=== PATIENT | female | born 1985 | race Caucasian/White ===

== ENCOUNTER 2017-01-19 02:07 | Emergency (ER) | payer OTHER ==
[~2017-01-19] VITALS: Ht 162.6 cm; Wt 59.1 kg
[~2017-01-19 02:07] MED LIST: CIPR-231 PO; CLIN-78 PO; FLUC150T48 PO; Ibuprofen PO; METR500T PO; NAPR500T5 PO; OXYC1TAB24 PO
[2017-01-19 02:15] VITALS: BP 105/68; PULSE 88; RESP 16; O2SAT 98
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
[2017-01-19] MEDS ORDERED: cefTRIAXone Inj 250 MG, Lidocaine PF 1% Inj 0.9 ML in Syringe 1 EACH IM ONE (03:00)
[2017-01-19 04:33] VITALS: BP 102/66; PULSE 64; RESP 18; O2SAT 100
[2017-01-19] MEDS ORDERED: _metroNIDAZOLE 500 mg Tablet PO SCH (08:30)
== END 2017-01-19 03:46 | disposition home or self-care (01) ==
LOC: SED 02:07
DX: T74.21XA Adult sexual abuse, confirmed, initial encounter (principal); Y04.8XXA Assault by other bodily force, initial encounter; Y07.50 Unspecified non-family member, perpetrator of maltreatment and neglect; Y92.9 Unspecified place or not applicable; Y93.89 Activity, other specified; Y99.8 Other external cause status; Z20.2 Contact with and (suspected) exposure to infections with a predominantly sexual mode of transmission; N89.8 Other specified noninflammatory disorders of vagina; R10.30 Lower abdominal pain, unspecified; M54.5 Low back pain; R30.0 Dysuria; J45.909 Unspecified asthma, uncomplicated; F11.20 Opioid dependence, uncomplicated; F17.200 Nicotine dependence, unspecified, uncomplicated; Z59.0 Homelessness; Z88.8 Allergy status to other drugs, medicaments and biological substances; Z88.0 Allergy status to penicillin; Z88.5 Allergy status to narcotic agent
CPT/HCPCS: 36415; 86592; 87491; 87591; 96372; 99284; G0433; G0472; J0696

== ENCOUNTER 2017-02-10 17:48 | Emergency (ER) | payer OTHER ==
[~2017-02-10] VITALS: Ht 162.6 cm; Wt 56.8 kg
[2017-02-10 18:44] VITALS: BP 102/66; PULSE 98; RESP 16; O2SAT 97
--- NOTE | 2017-02-10 19:07 | ED.REPORT ---
HPI-Rash / Abscess Date of Service Feb 10, 2017 ED Provider: Lucian Almanzar MD A 31 year old female with a history of IV heroin abuse and drug injection abscesses presents to the ED complaining of a multiple lesions to her face and extremities that first appeared a few months ago. She has several healing abscess wounds and reports discharge from some of the affected areas. Patient also reports subjective fever, bilateral eye discomfort and redness. She also claims that she has been experiencing worsening anxiety for the past week. Patient reports that she is preparing to go to treatment in two weeks and is seeking care for her abscesses. Patient is a frequent ED visitor. She denies chance of . Nursing Notes Stated Complaint: PINK EYE, SWOLLEN INFECTED ARMS AND LEGS Chief Complaint: Skin Rash/Abscess Nursing Notes Reviewed: Yes Allergies: Coded Allergies: methylphenidate HCl (Verified Allergy, Severe, TICKS, 01/19/17) amoxicillin (Verified Allergy, Unknown, 01/19/17) codeine (Verified Allergy, Unknown, 01/19/17) hydrocodone (Verified Allergy, Unknown, Nausea,Vomiting, 01/19/17) latex (Verified Allergy, Unknown, 01/19/17) potassium (Verified Allergy, Unknown, 01/19/17) Scheduled Cephalexin (Keflex) 500 Mg Capsule 500 MG PO QID Ciprofloxacin (Cipro) 500 Mg Tablet 500 MG PO BID Clindamycin (Clindamycin) 300 Mg Capsule 300 MG PO QID Clindamycin (Clindamycin) 300 Mg Capsule 300 MG PO QID Erythromycin Ophth Oint (Erythromycin Ophth Oint) 3.5 Gm Oint...g. 1 APPL OP QID Fluconazole (Diflucan) 150 Mg Tablet 150 MG PO ONCE Metronidazole (Flagyl) 500 Mg Tablet 500 MG PO BID Sulfamethoxazole/Trimeth 800-160 mg (Bactrim DS) 1 Each Tablet 1 TABLET PO BID Scheduled PRN ([Ibuprofen]) 200 MG TABLET 400 MG PO TIDWM PRN PRN For Pain Hydroxyzine Pamoate (Vistaril) 25 Mg Capsule 25 MG PO HS PRN PRN For Insomnia Naproxen (Naproxen) 500 Mg Tablet.dr 500 MG PO BID PRN PRN For Pain oxyCODONE-Acetaminophen 5-325 mg (oxyCODONE-Acetaminophen 5-325 mg) 1 Tab Tablet 1 TAB PO Q4H PRN PRN For Pain General Time Seen by MD: 19:02 Chief Complaint Rash Hx Obtained From: Patient Arrived By: Walk-in Onset Occurred: More than a week ago... Symptom Duration: Since onset Location: : Arm: Head/face: Lower extremity Quality: Painful Severity: Current: Mild Severity: Maximum: Mild Associated with: Reports Conjunctivitis, Reports Fever (Subjective ) Pertinent Negative: Pt denies other symptoms Recent Healthcare: No recent hospitalization, Recent doctor visit Past Medical History Past Medical History Back injury- injury of L4/L5 from work Kidney stones Hip dysplasia Pyelonephritis and frequent UTIs drug injection abscesses Reports: Asthma Past Surgical History T&A [place] teeth D&C Reports: Cholecystectomy Reports: Tubal ligation Family History non-contributory Smoking History Current Every Day Smoker Social History Alcohol Use: Denies alcohol use Drug Use: IV drugs Other Social History: Frequent ED visitor, , Homeless Occupation lives with and 3 kids Ambulatory Status Independent Review of Systems Constitutional: Reports: Fever (Subjective), Denies: Chills Eyes: Reports: Eye pain bilateral, Redness bilateral Respiratory: Denies: Shortness of breath GI: Denies: Nausea, Vomiting Skin: Reports Rash (Diffuse leisons to upper and lower extrmeities) Complete sys rev & neg: except as marked. Neurologic: Denies: Change LOC Psychiatric: Reports: Anxiety Physical Exam Initial Vital Signs Vital Signs (First) Date Time Temp Pulse Resp B/P Pulse Ox O2 Delivery O2 Flow Rate FiO2 02/10/17 18:44 36.2 98 16 102/66 97 Room Air Initial VS: Reviewed Neck: Supple, Non-tender, Full range of motion Extremities: Vascular intact, Neuro intact, No swelling, No tenderness Neurologic: Alert, Oriented, Nonfocal Psychiatric: Mood/affect normal, Behavior normal, Normal thought content General/Constitutional: Awake, Alert, Not toxic appearing GENERAL: Afebrile Skin: Atraumatic, Warm, Dry Rash / Lesion Notes: RASH/LESION: Crusty area of honey colored erythema Superficial ulcerations to bilateral upper and lower extremities Granulomatous base with purulent discharge (areas up to 2 cm) No fluctuant abscesses Rash / Lesion Location: Positive: Arm L, Arm R, Leg L, Leg R Head / Eyes: Atraumatic, Normocephalic, PERRL Conjunctiva / Sclera: Positive: Injected left, Injected right Eyelids: Negative: FB under lid L, FB under lid R Respiratory / Chest: Atraumatic, Breath sounds NL, Breath sounds = bilat, No respiratory distress Cardiovascular: Heart rate NL, Regular rhythm, Heart sounds NL, No gallop, No murmurs, No rubs, Cap refill not delayed, Pulses = bilaterally Re-Eval/Medical Decision Med Decision/Clinical Course Patient is a generally healthy 31-year-old female with a history of IV drug abuse who presents with diffuse erythematous nodules and shallow ulcerations about her bilateral upper and lower extremities which are chronic in nature. She also complains of 2 days of conjunctival injection and itchy eyes. Here in the emergency department she is afebrile, hemodynamically stable and nontoxic in appearance. There is no evidence of abscess amenable to incision and drainage. Her presentation is consistent with multiple regions of soft tissue injury and superficial ulceration likely multifactorial and related to superficial infection/cellulitis as well as toxin mediated tissue destruction due to skin popping heroin. Her conjunctival injection is consistent with conjunctivitis, there is no evidence of foreign body, corneal abrasion/ ulceration or foreign body. She does not wear contact lenses. She does not appear systemically L and she is afebrile. I prescribed a 10 day course of Bactrim and Keflex. She was quite anxious here in the emergency department and she was treated with 0.5 mg of oral Ativan. She is not driving home. I have prescribed a course of erythromycin ointment for her conjunctivitis. She plans to go to rehabilitation though is not quitting heroin at this time. She plans to check into rehabilitation next week. Follow-up and return precautions were reviewed in detail and the patient was discharged in stable condition. Her first dose of Bactrim/Keflex was administered in the emergency room. Re-Evaluation/Progress : Time of Eval: 20:13 Patient Status: Condition improved Re-Evaluation/Progress Note: Patient is rechecked. She is informed of her diagnosis. All of the patient's questions are addressed. She understands and agrees with the treatment plan. Counseled Regarding: Diagnosis, Need for follow-up, When/why to return to ED Discharge & Departure Impression: Primary Impression: Pustule Additional Impressions: IV drug abuse Conjunctivitis Conjunctivitis type: unspecified Laterality: bilateral Qualified Code: H10.9 - Unspecified conjunctivitis Cellulitis Site of cellulitis: unspecified site Qualified Code: L03.90 - Cellulitis, unspecified Skin breakdown Disposition: Home Discharge Condition All VS Reviewed: Yes Condition: Improved Patient Instructions: Conjunctivitis (ED) Additional Instructions: Thank you for seeking care at the emergency room. Our primary goal today in the ED was to evaluate you for any life-threatening conditions. Your evaluation was reassuring. Please abstain from heroin. You will be discharged with a prescription for Bactrim and Keflex. Please apply the ointment to both eyes. Please do not pick at the affected areas as it will help them heal better. You should follow-up with your primary doctor in the next week. You should return to the ED immediately if you develop fevers, chills, vomiting , worsening redness, warmth, swelling or any other concerning signs or symptoms. Thank you for letting us partake in your care today and good luck with your treatment! Referrals: [facility] (PCP) [facility] Res[facility] Scribe Attestation Portions of this note were transcribed by Tiffany Washington. I, Dr. Almanzar personally performed the history, physical exam and medical decision-making; I reviewed and confirmed the accuracy of the information in the transcribed note. Signed by: Vishal Gimenez, 02/10/17 Lucian Colon MD Feb 10, 2017 19:07 TIFFANY WASHINGTON Feb 10, 2017 19:36
[2017-02-10] MEDS ORDERED: CEPH-512 PO (20:03)
[2017-02-10] MEDS ORDERED: SULF1TAB7 PO (20:03)
[2017-02-10] MEDS ORDERED: Trimethoprim-Sulfa 160 mg-800 mg Tablet PO ONE (20:05)
[2017-02-10] MEDS ORDERED: HYDR25CA PO (20:05)
[2017-02-10] MEDS ORDERED: ERYT1OIN7 OP (20:05)
[2017-02-10] MEDS: LORazepam 0.5 mg Tablet PO ONE ×2 (20:08→20:13)
[2017-02-10 20:24] VITALS: BP 110/60; PULSE 97; RESP 15; O2SAT 98
== END 2017-02-10 20:25 | disposition home or self-care (01) ==
LOC: SED 17:48
DX: L03.90 Cellulitis, unspecified (principal); H10.9 Unspecified conjunctivitis; L98.9 Disorder of the skin and subcutaneous tissue, unspecified; F11.10 Opioid abuse, uncomplicated; J45.909 Unspecified asthma, uncomplicated; F17.210 Nicotine dependence, cigarettes, uncomplicated; Z88.0 Allergy status to penicillin; Z88.5 Allergy status to narcotic agent; Z88.8 Allergy status to other drugs, medicaments and biological substances

== ENCOUNTER 2017-02-27 19:08 | Emergency (ER) | payer OTHER ==
[~2017-02-27] VITALS: Ht 162.6 cm; Wt 54.5 kg
[~2017-02-27 19:08] MED LIST changes: +CEPH-512 PO; +ERYT1OIN7 OP; +HYDR25CA PO; +SULF1TAB7 PO
[2017-02-27 19:22] VITALS: BP 114/73; PULSE 103; RESP 16; O2SAT 97
--- NOTE | 2017-02-27 20:16 | ED.REPORT ---
HPI-Rash / Abscess Date of Service Feb 27, 2017 ED Provider: Rafi Holland DO Patient is a 31 year old female with a history of IV drug abuse and drug injection abscesses who presents to the ED with multiple abscesses that developed over the past 3-4 days. Her primary concern is an area of redness and swelling to her right upper brow. Her symptoms began with a pustule at her eyebrow, with redness spreading up to her hairline and down towards her eye. She reports that her vision is blurry. Patient was seen in the ED on February 10 for similar complaints, at which time she was treated with Bactrim and Keflex. She was also prescribed erythromycin ointment for bilateral conjunctivitis.The patient states that her eyes improved after receiving these drops. In addition, the patient admits to an abscess of her right groin. The patient states that whenever she moves her pants become wet due to discharge from this wound. The patient admits that she injected into this site several weeks ago. The patient last used IV heroin this morning. She denies currently being . Patient denies a fever, chills, nausea, or vomiting. Nursing Notes Stated Complaint: SWOLLEN EYE & PUSS POCKET ON GROIN Chief Complaint: Eye Nursing Notes Reviewed: Yes Allergies: Coded Allergies: methylphenidate HCl (Verified Allergy, Severe, TICKS, 01/19/17) amoxicillin (Verified Allergy, Unknown, 01/19/17) codeine (Verified Allergy, Unknown, 01/19/17) hydrocodone (Verified Allergy, Unknown, Nausea,Vomiting, 01/19/17) latex (Verified Allergy, Unknown, 01/19/17) Scheduled Cephalexin (Keflex) 500 Mg Capsule 500 MG PO QID Ciprofloxacin (Cipro) 500 Mg Tablet 500 MG PO BID Clindamycin (Clindamycin) 300 Mg Capsule 300 MG PO QID Clindamycin (Clindamycin) 300 Mg Capsule 300 MG PO QID Erythromycin Ophth Oint (Erythromycin Ophth Oint) 3.5 Gm Oint...g. 1 APPL OP QID Fluconazole (Diflucan) 150 Mg Tablet 150 MG PO ONCE Metronidazole (Flagyl) 500 Mg Tablet 500 MG PO BID Sulfamethoxazole/Trimeth 800-160 mg (Bactrim DS) 1 Each Tablet 1 TABLET PO BID Scheduled PRN ([Ibuprofen]) 200 MG TABLET 400 MG PO TIDWM PRN PRN For Pain Hydroxyzine Pamoate (Vistaril) 25 Mg Capsule 25 MG PO HS PRN PRN For Insomnia Naproxen (Naproxen) 500 Mg Tablet.dr 500 MG PO BID PRN PRN For Pain oxyCODONE-Acetaminophen 5-325 mg (oxyCODONE-Acetaminophen 5-325 mg) 1 Tab Tablet 1 TAB PO Q4H PRN PRN For Pain General Time Seen by MD: 20:16 Chief Complaint Abscess, Red area Hx Obtained From: Patient Arrived By: Walk-in Onset Occurred: 4 days ago Symptom Duration: Since onset Location: : Head/face: Inguinal Quality: Painful Severity: Current: Moderate Severity: Maximum: Moderate Recent Healthcare: Recent doctor visit Similar Sx Previous: Yes Past Medical History Past Medical History Back injury- injury of L4/L5 from work Kidney stones Hip dysplasia Pyelonephritis and frequent UTIs drug injection abscesses Reports: Asthma Reports: IV Drug use Past Surgical History T&A [place] teeth D&C Reports: Cholecystectomy Reports: Tubal ligation Family History non-contributory Smoking History Current Every Day Smoker Social History Alcohol Use: Denies alcohol use Drug Use: IV drugs Other Social History: Frequent ED visitor, , Homeless Occupation lives with and 3 kids Ambulatory Status Independent Review of Systems Constitutional: Denies: Chills, Fever Eyes: Reports: Blurred right, Redness right (surrounding eye) GI: Denies: Nausea, Vomiting Skin: Reports Rash (abscess, right groin) Complete sys rev & neg: except as marked. Physical Exam Initial Vital Signs Vital Signs (First) Date Time Temp Pulse Resp B/P Pulse Ox O2 Delivery O2 Flow Rate FiO2 02/27/17 19:22 36.6 103 16 114/73 97 Room Air Initial VS: Reviewed Neurologic: Alert, Oriented, Nonfocal Psychiatric: Mood/affect normal, Behavior normal General/Constitutional: Awake, Alert, No acute distress Skin: Warm, Dry Rash / Lesion Pattern: Positive: Track rojas Abscess Notes: Right inguinal abscess Head / Eyes: Normocephalic, PERRL, EOMI, Conjunctiva NL right preseptal cellulitis ENT: Airway patent Respiratory / Chest: Breath sounds NL, Breath sounds = bilat, No respiratory distress, No rales, No rhonchi, No wheezing Cardiovascular: Regular rhythm, Cap refill not delayed Heart Rate / Rhythm: Positive: Tachycardia Upper Extremity / MS: Full range of motion, No deformity Lower Extremity / Pelvis / MS: Full range of motion, No deformity Re-Eval/Medical Decision Med Decision/Clinical Course She needs the eyebrow abscess drained as well as the inguinal abscess drained. She would not let me perform either of these. She opted to squeeze the inguinal abscess herself and she should not pus all over the room. Actually hit the ceiling. She felt better. She wanted to try oral antibiotics. I think without a proper incision and drainage this is not going to work. I talked about a CT of her groin as well as CT of her face and she declined this. I will put her on Bactrim DS as well as Keflex referred to the surgical clinic see if they cannot consider taking the operating room if she cannot tolerate a bedside incision and drainage Source of Hx: Old records Re-Evaluation/Progress : Time of Eval: 22:05 Patient Status: Condition improved Re-Evaluation/Progress Note: Multiple attempts to perform the I&D were not successful. Patient would fall asleep before attempting. She would then wake up, grab my arms, and state that she was too anxious to proceed. Patient states that she wanted to come back. She will be started on Bactrim and Keflex. Discharge instructions and follow-up discussed. All questions were addressed. Return to the ED warnings given. Counseled Regarding: Diagnosis, Need for follow-up, When/why to return to ED Discharge & Departure Impression: Primary Impression: Inguinal abscess Additional Impression: Preseptal cellulitis of right eye Disposition: Home Discharge Condition All VS Reviewed: Yes Condition: Stable Patient Instructions: Abscess (ED), Cellulitis (ED) Additional Instructions: It was recommended that you undergo an incision and drainage of your abscess, with possible packing. If your symptoms do not improve you will need to return to the emergency department to have this performed. You should be rechecked tomorrow regardless. You may also call the surgical clinic and see if they can scheduled you for drainage under anesthesia. Call the surgical clinic tomorrow or return for recheck. Soak in a hot bath several times per day. Apply warm compresses to your eye as well. I strongly suggest that you stop abusing injection drugs. Take Bactrim three times daily for the next 7 days. Take Keflex four times daily for the next 7 days. Return to the Emergency Department if you develop any new or worsening symptoms. Referrals: Juan F Aguila MD [facility] Residency Clinic Scribe Attestation Portions of this note were transcribed by Megan Dupree. I, Dr. Holland personally performed the history, physical exam and medical decision-making; I reviewed and confirmed the accuracy of the information in the transcribed note. Signed by: Vishal Naranjo, 02/27/2017 2325 Rafi Holland DO Feb 27, 2017 20:16 Megan Dupree Feb 27, 2017 20:54
[2017-02-27] MEDS ORDERED: Lidocaine 1% 50 mL Inj NERVEBLOCK ONE (20:55)
[2017-02-27] MEDS ORDERED: Trimethoprim-Sulfa 160 mg-800 mg Tablet PO ONE (20:55)
[2017-02-27 22:52] VITALS: BP 116/74; PULSE 100; RESP 16; O2SAT 98
== END 2017-02-27 22:53 | disposition home or self-care (01) ==
LOC: SED 19:08
DX: L02.214 Cutaneous abscess of groin (principal); L03.213 Periorbital cellulitis; F17.200 Nicotine dependence, unspecified, uncomplicated; Z88.1 Allergy status to other antibiotic agents; Z88.5 Allergy status to narcotic agent; Z88.8 Allergy status to other drugs, medicaments and biological substances; Z91.040 Latex allergy status

== ENCOUNTER 2017-07-11 10:40 | Emergency (ER) | payer OTHER ==
[~2017-07-11] VITALS: Ht 162.6 cm; Wt 64.0 kg
[2017-07-11 10:43] VITALS: BP 13/73; PULSE 105; RESP 16; O2SAT 98
--- NOTE | 2017-07-11 10:54 | ED.REPORT ---
HPI-Hand Prob/Inj Date of Service Jul 11, 2017 ED Provider: Jorge Manuel MD The pt is a 31 y/o female w/ a hx of IV drug use presenting to the ED due to an abscess on her R ring finger onset 4 days ago. She also is experiencing chills and her R hand is swollen. She also reports her R pinky feeling very numb. Denies vomiting or fever. The pt reports using IV drugs daily but has not used today. Nursing Notes Stated Complaint: SWOLLEN FINGER/ABSCESS Chief Complaint: Finger abscess Nursing Notes Reviewed: Yes Allergies: Coded Allergies: methylphenidate HCl (Verified Allergy, Severe, TICKS, 07/11/17) amoxicillin (Verified Allergy, Unknown, 07/11/17) codeine (Verified Allergy, Unknown, 07/11/17) hydrocodone (Verified Allergy, Unknown, Nausea,Vomiting, 07/11/17) latex (Verified Allergy, Unknown, 07/11/17) Scheduled Cephalexin (Keflex) 500 Mg Capsule 500 MG PO QID Ciprofloxacin (Cipro) 500 Mg Tablet 500 MG PO BID Clindamycin (Clindamycin) 300 Mg Capsule 300 MG PO QID Clindamycin (Clindamycin) 300 Mg Capsule 300 MG PO QID Clindamycin (Clindamycin) 300 Mg Capsule 300 MG PO QID Erythromycin Ophth Oint (Erythromycin Ophth Oint) 3.5 Gm Oint...g. 1 APPL OP QID Fluconazole (Diflucan) 150 Mg Tablet 150 MG PO ONCE Metronidazole (Flagyl) 500 Mg Tablet 500 MG PO BID Sulfamethoxazole/Trimeth 800-160 mg (Bactrim DS) 1 Each Tablet 1 TABLET PO BID Scheduled PRN ([Ibuprofen]) 200 MG TABLET 400 MG PO TIDWM PRN PRN For Pain Hydroxyzine Pamoate (Vistaril) 25 Mg Capsule 25 MG PO HS PRN PRN For Insomnia Naproxen (Naproxen) 500 Mg Tablet.dr 500 MG PO BID PRN PRN For Pain oxyCODONE-Acetaminophen 5-325 mg (oxyCODONE-Acetaminophen 5-325 mg) 1 Tab Tablet 1 TAB PO Q4H PRN PRN For Pain General Time Seen by Provider: 10:59 Chief Complaint Other (Finger abscess ) Hx Obtained From: Patient Arrived By: Walk-in Onset Occurred: 4 days ago Symptom Duration: Since onset Recent Healthcare: No recent hospitalization, Recent doctor visit Similar Sx Previous: Yes Past Medical History Past Medical History Back injury- injury of L4/L5 from work Kidney stones Hip dysplasia Pyelonephritis and frequent UTIs drug injection abscesses Reports: Asthma Reports: IV Drug use Past Surgical History T&A [place] teeth D&C Reports: Cholecystectomy Reports: Tubal ligation Family History non-contributory Smoking History Current Every Day Smoker Social History Alcohol Use: Denies alcohol use Drug Use: IV drugs Other Social History: Frequent ED visitor, , Homeless Occupation lives with and 3 kids Ambulatory Status Independent Review of Systems Abscess to R ring finger; R hand swelling; R pinky numbness; Constitutional: Reports: Chills, Denies: Fever Complete sys rev & neg: except as marked. GI: Denies: Vomiting Physical Exam Initial Vital Signs Vital Signs (First) Date Time Temp Pulse Resp B/P Pulse Ox O2 Delivery O2 Flow Rate FiO2 07/11/17 10:43 36.7 105 16 13/73 98 Room Air Initial VS: Reviewed General/Constitutional: Well-developed, Well-nourished Head / Eyes: Atraumatic, Normocephalic, PERRL ENT: Mucous membranes moist, Conjunctiva normal, No scleral icterus Neck: Supple, Non-tender, Full range of motion Respiratory: Breath sounds normal, Clear to auscultation, No respiratory distress Cardiovascular: Regular rate & rhythm, Heart sounds normal, Intact distal pulses Neurologic: Alert, Oriented, Nonfocal Psychiatric: Mood/affect normal, Behavior normal, Normal thought content Wrist / Hand: No deformity Right Hand: Positive: Swelling present... (Moderate) Abscess on flexor portion of R ring finger Procedures Incision & Drainage Abscess Time: 13:44 Procedure Performed by: ED physician Consent / Setup / Site Prep: Informed consent provided, Consent from patient , Time-out performed, Hand hygiene observed, Stand sterile technique Location of Abscess: R ring finger Skin Preparation Agent: Normal saline Local Anesthesia: Other (50% Marcaine 50% lidocaine w/o epi ) Incised Abscess with Scalpel: #11 Pus Drained: Small, Purulent discharge Irrigation: Yes Post-Procedure / Complications: Dressing applied, No complications, Condition improved, Tolerated procedure well, Patient stable Re-Eval/Medical Decision Source of Hx: Old records Re-Evaluation/Progress #1: Time of Eval: 11:19 Re-Evaluation/Progress Note: Rechecked pt and informed plan for drainage of the abscess, and plan to see Dr. Abreu for further treatment. Re-Evaluation/Progress #2: Time of Eval: 11:22 Re-Evaluation/Progress Note: Rechecked pt who is very nervous about receiving the numbing medication. Re-Evaluation/Progress #3: Time of Eval: 13:27 Re-Evaluation/Progress Note: Applied a digital block to the area Re-Evaluation/Progress #4: Time of Eval: 13:44 Re-Evaluation/Progress Note: Performed I+D procedure Consultation : Referral / Consult Name: Girish Abreu MD Consulted With: Surgeon Call Returned at: 11:12 Staff Counselor: Will see patient Note: Discussed pt's case w/ Dr. Abreu who recommended giving the pt Clindamycin, to make a small incison for drainage and to have the pt see him tomorrow for further treatment. Counseled Regarding: Diagnosis, Need for follow-up, When/why to return to ED Discharge & Departure Primary Impression: Abscess of finger of right hand Disposition: Home Discharge Condition All VS Reviewed: Yes Condition: Stable Patient Instructions: Abscess (ED) Additional Instructions: Please take the Clindamycin as prescribed and see Dr. Abreu tomorrow at 10:15 a.m. for further treatment for your abscess. Hot soaks will be helpful too. Don't use any narcotics until at least 6 p.m. today as their combined effects with the lorazapam you received could be VERY dangerous. Referrals: Girish Abreu MD, David M DO Scribe Attestation Portions of this note were transcribed by Doug Pillai. I, Dr. Manuel personally performed the history, physical exam and medical decision-making; I reviewed and confirmed the accuracy of the information in the transcribed note. copies to: Girish Abreu MD; Naveen Novak Kirk H MD Jul 11, 2017 10:53 Doug Pillai Jul 11, 2017 11:14
[2017-07-11] MEDS ORDERED: Bupivacaine-MPF 0.5% 30 mL Inj ONE (11:21)
[2017-07-11] MEDS ORDERED: LORazepam 1 mg Tablet PO ONE ×2 (11:50→12:35)
[2017-07-11] MEDS ORDERED: LORazepam 0.5 mg Tablet PO ONE (12:35)
[2017-07-11 12:38] VITALS: BP 117/68; PULSE 107; RESP 22; O2SAT 99
[2017-07-11] MEDS ORDERED: CLIN-78 PO (13:58)
[2017-07-11 14:05] VITALS: BP 104/65; PULSE 90; RESP 20; O2SAT 97
== END 2017-07-11 14:06 | disposition home or self-care (01) ==
LOC: SED 10:40
DX: L02.511 Cutaneous abscess of right hand (principal); J45.909 Unspecified asthma, uncomplicated; F17.200 Nicotine dependence, unspecified, uncomplicated; F19.10 Other psychoactive substance abuse, uncomplicated; Z59.0 Homelessness; Z88.1 Allergy status to other antibiotic agents; Z88.5 Allergy status to narcotic agent; Z91.040 Latex allergy status